=== PATIENT | male | born 1995 | race Caucasian/White ===

== ENCOUNTER 2017-10-02 20:43 | Emergency (ER) | payer MEDICAID ==
[~2017-10-02] VITALS: Ht 182.9 cm; Wt 81.8 kg
[2017-10-02] MEDS ORDERED: FentaNYL CITRATE-PF 100 MCG/2 ML VIAL IVP ONE (21:45)
[2017-10-02] MEDS ORDERED: LIDOCAINE HCL 1%/EPI 1:200,000/PF 10 ML VIAL INJ ONE (22:15)
[2017-10-02] MEDS ORDERED: ETOMIDATE 2 MG/ML 10 ML VIAL IVP ONE (22:15)
[2017-10-02 23:20] VITALS: BP 143/78
== END 2017-10-03 00:07 | disposition home or self-care (01) ==
LOC: EMS 20:45
DX: S43.005A Unspecified dislocation of left shoulder joint, initial encounter (principal); S09.90XA Unspecified injury of head, initial encounter; S01.112A Laceration without foreign body of left eyelid and periocular area, initial encounter; X58.XXXA Exposure to other specified factors, initial encounter; Y93.89 Activity, other specified; Y92.89 Other specified places as the place of occurrence of the external cause; Y99.8 Other external cause status
CPT/HCPCS: 12011; 23650; 70450; 70486; 73030; 93005; 99285; J3010; J3490 ×2

== ENCOUNTER 2017-12-12 18:17 | Emergency (ER) | payer MEDICAID, OTHER ==
[~2017-12-12] VITALS: Ht 180.3 cm; Wt 72.0 kg
[2017-12-12] MEDS ORDERED: ETOMIDATE 2 MG/ML 10 ML VIAL IVP ONE (19:15)
[2017-12-12 20:19] VITALS: BP 148/90
== END 2017-12-12 20:28 | disposition home or self-care (01) ==
LOC: EMS 18:19
DX: S43.005A Unspecified dislocation of left shoulder joint, initial encounter (principal); F17.210 Nicotine dependence, cigarettes, uncomplicated; F12.90 Cannabis use, unspecified, uncomplicated; W19.XXXA Unspecified fall, initial encounter; Y93.89 Activity, other specified; Y92.89 Other specified places as the place of occurrence of the external cause; Y99.8 Other external cause status
CPT/HCPCS: 23650; 73030; 99152; 99285; 99406; J3490

== ENCOUNTER 2018-01-30 17:10 | Emergency (ER) | payer OTHER ==
[~2018-01-30] VITALS: Ht 165.1 cm; Wt 78.0 kg
[2018-01-30] MEDS ORDERED: LIDOCAINE HCL 1% 10 ML VIAL INJ ONE (18:15)
[2018-01-30] MEDS ORDERED: MORPHINE SULFATE 4 MG/ML SYRINGE IM ONE (18:30)
[2018-01-30] MEDS ORDERED: KETAMINE HCL 50 MG/ML 10 ML VIAL IVP ONE (19:15)
[2018-01-30] MEDS ORDERED: MIDAZOLAM HCL 5 MG/ML VIAL ONE (19:39)
[2018-01-30 20:40] VITALS: BP 130/89
== END 2018-01-30 20:57 | disposition home or self-care (01) ==
LOC: EMS 17:11
DX: S42.292A Other displaced fracture of upper end of left humerus, initial encounter for closed fracture (principal); S43.085A Other dislocation of left shoulder joint, initial encounter; F17.210 Nicotine dependence, cigarettes, uncomplicated; X58.XXXA Exposure to other specified factors, initial encounter; Y93.89 Activity, other specified; Y92.89 Other specified places as the place of occurrence of the external cause; Y99.8 Other external cause status
CPT/HCPCS: 23650; 73030; 99285; J2270; J3490 ×2; 99152; J2250

== ENCOUNTER 2018-09-01 02:19 | Emergency (ER) | payer OTHER ==
[~2018-09-01] VITALS: Ht 182.9 cm; Wt 81.8 kg
[2018-09-01] MEDS: KETAMINE HCL 50 MG/ML 10 ML VIAL IVP ONE ×2 (03:35→04:10)
[2018-09-01] MEDS ORDERED: MIDAZOLAM HCL 2 MG/2 ML VIAL ONE (04:15)
[2018-09-01] MEDS ORDERED: FentaNYL CITRATE-PF 100 MCG/2 ML VIAL ONE (04:19)
[2018-09-01] MEDS ORDERED: MIDAZOLAM HCL 5 MG/ML VIAL ONE ×2 (04:19→04:25)
[2018-09-01] MEDS ORDERED: FentaNYL CITRATE-PF 100 MCG/2 ML VIAL IVP ONE (06:00)
[2018-09-01] MEDS ORDERED: MIDAZOLAM HCL 5 MG/ML VIAL IVP ONE (06:00)
[2018-09-01 06:06] LABS: AMPHET/METH SCREEN,URINE POSITIVE (NEGATIVE); BARBITURATE SCREEN, URINE NEGATIVE (NEGATIVE); BENZODIAZEPINES SCREEN,URINE POSITIVE (NEGATIVE); CANNABINOID SCREEN,URINE POSITIVE (NEGATIVE); COCAINE SCREEN,URINE NEGATIVE (NEGATIVE); METHADONE SCREEN, URINE NEGATIVE (NEGATIVE); OPIATE SCREEN,URINE NEGATIVE (NEGATIVE); PHENCYCLIDINE SCREEN,URINE NEGATIVE (NEGATIVE)
[2018-09-01 09:52] VITALS: BP 134/78
== END 2018-09-01 10:39 | disposition home or self-care (01) ==
LOC: EMS 02:22
DX: M24.412 Recurrent dislocation, left shoulder (principal); F17.210 Nicotine dependence, cigarettes, uncomplicated; F12.90 Cannabis use, unspecified, uncomplicated
CPT/HCPCS: 23650; 73030; 80307; 99152; 99285; J2250 ×2; J3010; J3490